=== PATIENT | female | born 1960 | race Caucasian/White ===

== ENCOUNTER → 2021-05-06 | Outpatient (CLI) | payer OTHER | END | disposition home or self-care (01) | LOC: OIH 15:45 | PROVIDERS: ATTEND Internal Medicine Critical Care Medicine | DX: Z13.6 Encounter for screening for cardiovascular disorders (principal); Z82.49 Family history of ischemic heart disease and other diseases of the circulatory system | CPT/HCPCS: 75571 ==

== ENCOUNTER → 2023-07-15 | Outpatient (CLI) | payer OTHER | END | disposition home or self-care (01) | LOC: RAH 12:49 | PROVIDERS: ATTEND Internal Medicine Critical Care Medicine | DX: I65.23 Occlusion and stenosis of bilateral carotid arteries (principal) | CPT/HCPCS: 93880 ==